=== PATIENT | female | born 1970 | race Caucasian/White ===

== ENCOUNTER 2016-09-22 05:19 | Inpatient (IN) | payer OTHER ==
[~2016-09-22] VITALS: Ht 162.6 cm; Wt 110.2 kg
[2016-09-22] VITALS (16 sets, daily range): BP systolic 108–134; BP diastolic 59–72; PULSE 50–86; RESP 10–18; Ht 162.6 cm; Wt 110.2 kg
[~2016-09-22 05:19] MED LIST: CAPT25TA3 PO; GLIP-95 PO; HYDR25TA6 PO; PARO10TA76 PO; PIOG30TA19 PO
[2016-09-22] MEDS ORDERED: LACTATED RINGER'S 1,000 ML IV* SCH (05:30)
[2016-09-22] MEDS ORDERED: CANA300T PO (06:45)
[2016-09-22] MEDS ORDERED: TUJEO (06:45)
--- NOTE | 2016-09-22 07:47 | HPN ---
Date/Time of Note Date/Time of Note DATE: 09/22/16 TIME: 07:47 Interval H&P Admission Note Pt. seen H&P reviewed: No system changes RADHA LOCKE MD Sep 22, 2016 07:47
[2016-09-22] MEDS ORDERED: FENTAnyl 50 MCG/ML VIAL ONE (07:58)
[2016-09-22] MEDS ORDERED: SUGAMMADEX SODIUM 200 MG/2 ML VIAL IV ONE (09:13)
[2016-09-22] MEDS ORDERED: LIDOCAINE 2% (SDV) 5 ML INJ ONE (09:13)
[2016-09-22] MEDS ORDERED: CLINDAMYCIN 900 MG/D5W (PMX) 50 ML IVPB ONE (09:13)
[2016-09-22] MEDS ORDERED: ROPIVACAINE 0.5 % 30 ML VIAL ONE (09:13)
[2016-09-22] MEDS ORDERED: SUCCINYLCHOLINE CHLORIDE 100 MG/5 ML SYG IV ONE (09:13)
[2016-09-22] MEDS ORDERED: ROCURONIUM 50 MG INJ ONE (09:13)
[2016-09-22] MEDS ORDERED: PROPOFOL 40 ML ONE (09:13)
[2016-09-22] MEDS: IBUPROFEN 600 MG TAB PO SCH ×3 (09:30→20:46)
[2016-09-22] MEDS ORDERED: DIPHENHYDRAMINE 50 MG INJ IV PRN (09:30)
[2016-09-22] MEDS ORDERED: FENTAnyl 50 MCG/ML VIAL IV PRN ×2 (09:30)
[2016-09-22] MEDS ORDERED: METOCLOPRAMIDE 10 MG INJ IV PRN (09:30)
[2016-09-22] MEDS ORDERED: MEPERIDINE 25 MG INJ IV PRN (09:30)
[2016-09-22] MEDS ORDERED: OXYCODONE/ACETAMINOPHEN (5/325) TAB PO PRN (09:30)
[2016-09-22] MEDS ORDERED: ONDANSETRON 4 MG INJ IV PRN (09:30)
[2016-09-22] MEDS ORDERED: HYDROmorphONE (0.2 MG/ML) 10ML SYG IV PRN ×2 (09:30)
--- NOTE | 2016-09-22 10:35 | OPR ---
Date/Time of Note Date/Time of Note DATE: 09/22/16 TIME: 10:32 Operative Report Preoperative Diagnosis rt ovarian cyst Postoperative Diagnosis rt paraovarian ovarian cyst Operation/Procedure Performed rt paraovarian cystectomy rt salphingectomy Surgeon: RADHA LOCKE MD Co-Surgeon: KARIE GALICIA Anesthesia: general Estimated Blood Loss: minimal Specimens rt paraovarian cyst RADHA LOCKE MD Sep 22, 2016 10:35
[2016-09-22 11:14] LABS: BASOPHILS % 0.1 % (0.0-2.0); EOSINOPHILS # 0.1 10^3/ul (0.0-0.5); EOSINOPHILS % 0.4 % (0.0-7.0); HEMATOCRIT 43.1 % (37.0-47.0); HEMOGLOBIN 14.1 g/dl (12.0-16.0); LYMPHOCYTES # 0.9 10^3/ul (0.8-2.9); LYMPHOCYTES % 7.4 % (15.0-51.0); MEAN CORPUSCULAR HGB CONC 32.7 g/dl (32.0-37.0); MEAN CORPUSCULAR VOLUME 88.7 fl (82.0-101.0); MEAN PLATELET VOLUME 11.1 fl (7.4-10.4); MONOCYTE # 0.6 10^3/ul (0.3-0.9); MONOCYTES % 5.1 % (0.0-11.0); NEUTROPHILS % 86.7 % (39.0-77.0); PLATELET COUNT 188 10^3/UL (140-415); RED BLOOD COUNT 4.86 10^6/ul (4.20-5.40); RED CELL DISTRIBUTION WIDTH 13.2 % (11.5-14.5); WHITE BLOOD COUNT 11.6 10^3/ul (4.8-10.8)
[2016-09-22] MEDS ORDERED: IBUPROFEN 600 MG TAB PO SCH (12:00)
[2016-09-22] MEDS: OXYCODONE/ACETAMINOPHEN (5/325) TAB PO PRN ×2 (15:00→20:46)
[2016-09-22] MEDS ORDERED: ACCU-CHEK XX SCH (19:50)
[2016-09-22] MEDS ORDERED: GLUCOSE GEL 15 GRAM TUBE BUCCAL PRN (23:30)
[2016-09-22] MEDS ORDERED: DEXTROSE 50% 50 ML SYRINGE IV PRN ×2 (23:30)
[2016-09-22] MEDS ORDERED: GLUCOSE GEL 15 GRAM TUBE PO PRN ×2 (23:30)
[2016-09-22] MEDS ORDERED: GLUCAGON 1 MG INJ IM PRN (23:30)
[2016-09-23] MEDS: OXYCODONE/ACETAMINOPHEN (5/325) TAB PO PRN ×2 (01:08→05:25)
[2016-09-23] MEDS ORDERED: ACCU-CHEK XX SCH ×2 (02:00)
[2016-09-23] MEDS: IBUPROFEN 600 MG TAB PO SCH ×4 (03:51→21:26)
[2016-09-23 04:30] VITALS: BP 125/71; RESP 16
--- NOTE | 2016-09-23 05:18 | OPR ---
DATE OF OPERATION: 09/22/2016 PREOPERATIVE DIAGNOSIS: Right ovarian cyst. POSTOPERATIVE DIAGNOSIS: Right paraovarian cyst. ANESTHESIA: General. ANESTHESIOLOGIST: Kendrick Chávez MD. SURGEON: Yulissa Rios MD. [place] OPERATOR: Dr. Ledezma. PROCEDURE: Right ovarian cystectomy and right salpingectomy. OPERATIVE PROCEDURE: After appropriate induction of general anesthesia, the patient was placed in prone lithotomy position. Lopes catheter was introduced into the bladder under sterile conditions and repositioned to supine. Abdominal wall was prepped and draped in usual aseptic manner. A Pfannenstiel incision was made, and the incision was carried down to the subcutaneous tissue to the anterior rectal fascia, which was incised transversely in the length of the incision. Fascial flap was created by blunt and sharp dissection of tendonous attachment upward and downward. Two rectus muscles split in the midline. Peritoneal cavity was entered digitally. The patient was placed in Trendelenburg position. Uterus appeared to be slightly increased in size, form, and consistency. Left fallopian tube and ovary felt to be normal. Right side adnexa was occupied by enlarged cystic mass, which measured approximately 12 cm in diameter, and the surface was smooth, somewhat irregular shape. Medium size Lester was introduced to abdominal cavity after the Trendelenburg position, and ovarian cyst was visualized through the abdominal opening. Since the sides of the cyst were bigger than the incision, it was decided to drain the cystic content. After the cyst was evaluated, which was most likely paraovarian, even though the visualization was inadequate. So, a small incision was made on the overlying tissue, and cystic structure was enucleated up to the bottom of the cyst. Then, a smaller needle fitting was used for draining the cystic content, which was clear and removed about 50 mL. The cyst was reduced in size and able to deliver out through the incision. The paraovarian cyst and the cystic structure was completely removed from the mesosalpinx. The pathologist was just called for the pathology report. At the base of the cystic wall, mesosalpinx down to the ovary, which was doubly clamped, cut, and doubly ligated with 0 chromic. This pedicle was covered with Intercept. No bleeding was noted. The peritoneum was closed with 0 chromic catgut in continuous manner after sponge count was correct. The muscle was closed with 0 chromic in continuous manner. Fascia was closed with #1 Vicryl in continuous manner in 2 segments. Subcutaneous tissue was irrigated with water. This layer was approximated with 2 plain in continuous manner. Skin closed with 3-0 Monocryl in subcuticular manner. Steri-strips applied, pressure dressing applied. Estimated blood loss was minimal. The procedure was completed. The patient was sent to the recovery room in stable condition. Dictated By: Yulissa Rios MD /hayley/april /Document#: [id number]
[2016-09-23 07:25] VITALS: BP 141/81; RESP 18
[2016-09-23] MEDS: INSULIN ASPART [NOVOLOG] 3 ML PEN SC SCH ×4 (08:02→21:00)
--- NOTE | 2016-09-23 09:19 | CONS ---
Date/Time of Note Date/Time of Note DATE: 09/23/16 TIME: 09:18 Consultation Date/Type/Reason Admit Date/Time Sep 22, 2016 at 13:24 Initial Consult Date 09/23/16 Type of Consultation: Anesthesiology Reason for Consultation Follow up 24 HR Interval Summary Free Text/Dictation pt seen and examined at bedside is POD#1 s/p Right ovarian cystectomy and right salpingectomy. Pt received GETA without any complication. She is currently doing very well and states she has minimal pain. No N/V/D/C. Will continue to follow. Constitutional: improved, no complaints Exam/Review of Systems Vital Signs Vitals Vital Signs Date Time Temp Pulse Resp B/P Pulse Ox O2 Delivery O2 Flow Rate FiO2 09/23/16 07:25 98.3 76 18 141/81 97 09/23/16 04:30 Room Air 09/22/16 10:55 2.0 Intake and Output 09/22/16 09/22/16 09/23/16 15:00 23:00 07:00 Intake Total 3000 ml 120 ml 240 ml Output Total 370 ml 800 ml Balance 2630 ml -680 ml 240 ml Results Result Diagram: 09/22/16 1054 Results 24 hrs Laboratory Tests Test 09/22/16 10:54 09/22/16 20:38 09/22/16 22:44 09/22/16 23:26 White Blood Count 11.6 H Red Blood Count 4.86 Hemoglobin 14.1 Hematocrit 43.1 Mean Corpuscular Volume 88.7 Mean Corpuscular Hemoglobin 29.0 Mean Corpuscular Hemoglobin Concent 32.7 Red Cell Distribution Width 13.2 Platelet Count 188 Mean Platelet Volume 11.1 H Neutrophils % 86.7 H Lymphocytes % 7.4 L Monocytes % 5.1 Eosinophils % 0.4 Basophils % 0.1 Nucleated Red Blood Cells % 0.0 Neutrophils # 10.0 H Lymphocytes # 0.9 Monocytes # 0.6 Eosinophils # 0.1 Basophils # 0.0 Nucleated Red Blood Cells # 0.0 Bedside Glucose 205 216 175 Test 09/23/16 05:06 09/23/16 06:30 09/23/16 07:59 Fasting Glucose 132 H Lab Scanned Report LAB Bedside Glucose 123 Medications Medications Current Medications Ibuprofen (Motrin) 600 mg Q6H PO Last administered on 09/23/16t 08:36; Admin Dose 600 MG; Start 09/22/16 at 09:30 Oxycodone/ Acetaminophen (Percocet (5/ 325)) 2 tab Q4H PRN PO PAIN Last administered on 09/23/16t 05:25; Admin Dose 2 TAB; Start 09/22/16 at 09:30 Diagnostic Test (Pha) (Accu-Chek) 1 ea 02 XX ; Start 09/23/16 at 02:00 Diagnostic Test (Pha) (Accu-Chek) 1 ea 02 XX ; Start 09/23/16 at 02:00 Miscellaneous Information 1 ea NOTE XX ; Start 09/22/16 at 23:30 Glucose (Glutose) 15 gm Q15M PRN PO DECREASED GLUCOSE; Start 09/22/16 at 23:30 Glucose (Glutose) 22.5 gm Q15M PRN PO DECREASED GLUCOSE; Start 09/22/16 at 23: 30 Dextrose (D50w Syringe) 25 ml Q15M PRN IV DECREASED GLUCOSE; Start 09/22/16 at 23:30 Dextrose (D50w Syringe) 50 ml Q15M PRN IV DECREASED GLUCOSE; Start 09/22/16 at 23:30 Glucagon (Glucagen) 1 mg Q15M PRN IM DECREASED GLUCOSE; Start 09/22/16 at 23:30 Glucose (Glutose) 15 gm Q15M PRN BUCCAL DECREASED GLUCOSE; Start 09/22/16 at 23 :30 SURESH ROCK Sep 23, 2016 09:19
[2016-09-23 13:44] VITALS: BP 135/74; RESP 18
[2016-09-23 20:00] VITALS: BP 123/69; RESP 16
--- NOTE | 2016-09-23 20:51 | PD.PPDC ---
OFFSET PRINTING OPERATOR Discharge Instruction Diagnosis Final Diagnosis: rt paratubal cyst Diet Special Diet: ada 1999 Activity/Restrictions Activity: May Shower Restrictions: No Exercising No Lifting Minimize Stair-climbing No Sexual Activity Nothing in the Vagina No [place] No Tampons, douche Wound/Drain Care Instructions Wound/Drain Care Instructions: Wash with soap and water Keep clean and dry Follow-up Follow-up with Physician: Week/Weeks Return to clinic for [facility] [employer] Instructions: Fever greater than 101 Chills Worsening abdominal pain Excessive Vaginal Bleeding More than 2 pads per hour Unable to tolerate diet Surgical Instructions: Incisional Drainage Incisional Redness RADHA LOCKE MD Sep 23, 2016 20:51
--- NOTE | 2016-09-23 21:00 | DS ---
Date/Time of Note Date/Time of Note DATE: 09/23/16 TIME: 20:54 Discharge Summary Admission/Discharge Info Admit Date/Time Sep 22, 2016 at 13:24 Discharge Date/Time 09/23/162044 Discharge Diagnosis rt paratubal cyst Patient Condition: Stable Procedures rt parattuba; cystectomy rt salphingectomy Hx of Present Illness was admitted for rt ovarian cystectomy but turned out to be paratubal cyst which was removed and rt tube is also removed Hospital Course unevemful eating ok passing flatus bs was controlled with sliding scale with short cating insulin Home Meds Reported Medications [Tujeo] No Conflict Check, 20 QHS 09/22/16 Canagliflozin (Invokana) 300 Mg Tablet, 300 MG PO DAILY, TAB 09/22/16 Hydrochlorothiazide (Hydrochlorothiazide) 25 Mg Tablet, 25 MG PO DAILY 10/14/10 Captopril* (Captopril*) 25 Mg Tablet, 25 MG PO DAILY 10/14/10 Paroxetine Hcl* (Paroxetine*) 10 Mg Tablet, 10 MG PO DAILY 10/14/10 Discontinued Reported Medications Glipizide* (Glipizide*) 10 Mg Tablet, 10 MG PO BID 10/14/10 Pioglitazone Hcl* (Actos*) 30 Mg Tablet, 30 MG PO DAILY 10/14/10 Follow-up Plan discharge home with rosa SILVAO in 2weeks for postop ck up to PMD for BS control Primary Care Provider Mariah Hall DO Time spent on discharge: < 30 minutes Pending Labs Laboratory Tests Test 09/22/16 22:44 09/22/16 23:26 09/23/16 05:06 09/23/16 06:30 Bedside Glucose 216mg/dL (70-220) 175mg/dL (70-220) Fasting Glucose 132mg/dl (70-110) Lab Scanned Report [id number] Test 09/23/16 07:59 09/23/16 12:19 09/23/16 17:24 Bedside Glucose 123mg/dL (70-220) 228mg/dL (70-220) 120mg/dL (70-220) RADHA LOCKE MD Sep 23, 2016 21:00
== END 2016-09-23 22:05 | disposition home or self-care (01) | DRG 742 ==
LOC: SDS 05:19 → MS2 13:24
PROVIDERS: ADMIT Obstetrics & Gynecology; ATTEND Obstetrics & Gynecology
PROC: 0UB00ZZ Excision of Right Ovary, Open Approach (ICD-10-PCS; 2016-09-22)
PROC: 0UT50ZZ Resection of Right Fallopian Tube, Open Approach (ICD-10-PCS; principal; 2016-09-22 07:30)
DX: N83.8 Other noninflammatory disorders of ovary, fallopian tube and broad ligament (principal); Z68.41 Body mass index [BMI] 40.0-44.9, adult; E11.42 Type 2 diabetes mellitus with diabetic polyneuropathy; N83.201 Unspecified ovarian cyst, right side; I10 Essential (primary) hypertension; E66.01 Morbid (severe) obesity due to excess calories
CPT/HCPCS: 82947; 82962; 85025; 86850; 86900; 86901; 86920; 88104; 88305; 88331; J1170; J1815; J2405; J2795; J3010; J7999

== ENCOUNTER 2017-08-13 05:50 | Day surgery (SDC) | END 2017-08-13 10:38 | disposition home or self-care (01) ==